=== PATIENT | male | born 1985 | race Caucasian/White ===

== ENCOUNTER 2023-07-15 11:06 | Emergency (ER) | payer SELFPAY ==
[~2023-07-15] VITALS: Ht 175.3 cm; Wt 145.5 kg
[2023-07-15 11:14] VITALS: TEMP 98.4
[2023-07-15] MEDS ORDERED: PREDNISONE20 MG PO (12:20)
[2023-07-15] MEDS ORDERED: ALBUTEROL0.83 MG/ML IH (12:21)
[2023-07-15 12:29] VITALS: BP 142/88; PULSE 93
[2023-07-15] MEDS ORDERED: PROAIR HFA0.09 MG/AC IH (12:33)
== END 2023-07-15 12:33 | disposition home or self-care (01) ==
LOC: COL.ER 11:06
DX: J45.901 Unspecified asthma with (acute) exacerbation (principal)
CPT/HCPCS: J7512

== ENCOUNTER 2023-07-23 10:36 | Emergency (ER) | payer SELFPAY ==
[~2023-07-23] VITALS: Ht 175.3 cm; Wt 145.5 kg
[~2023-07-23 10:36] MED LIST: ALBUTEROL0.83 MG/ML IH; PREDNISONE20 MG PO; PROAIR HFA0.09 MG/AC IH
[2023-07-23 11:17] LABS: BASO # 0.1 K/mm3 (0.0-0.2); BASO % 0.5 % (0.0-2.0); EOS # 0.3 K/mm3 (0.0-0.7); EOS % 1.8 % (0.0-4.0); GRAN # 9.1 K/mm3 (1.4-6.5); GRAN % 61.8 % (42.2-75.2); HEMATOCRIT 45.8 % (42.0-52.0); HEMOGLOBIN 15.2 g/dl (13.5-18.0); LYMPH # 4.2 K/mm3 (1.2-3.4); LYMPH % 28.7 % (20.0-51.0); MEAN CELL VOLUME 85 fl (80.0-100.0); MEAN CORPUSCULAR HEMOGLOBIN 28 pg (27-31); MEAN CORPUSCULAR HGB CONC 33 g/dl (33.0-37.0); MEAN PLATELET VOLUME 11.1 fl (7.4-10.4); MONO # 0.9 K/mm3 (0.1-0.6); MONO % 6.2 % (1.7-9.3); PLATELET COUNT 288 K/mm3 (130-400); REDCELL DISTRIBUTION WIDTH-CV 13.2 % (11.5-14.5)
[2023-07-23 11:35] LABS: ALANINE AMINOTRANSFERASE 63 U/L (0-55); ALBUMIN 3.3 gm/dL (3.5-5.0); ALKALINE PHOSPHATASE 78 U/L (40-150); ANION GAP 10 mmol/L (7-16); AST,SGOT 31 U/L (5-34); BILIRUBIN,TOTAL 0.5 mg/dL (0.2-1.2); BLOOD UREA NITROGEN 14 mg/dL (9-21); CARBON DIOXIDE 26 mmol/L (22-29); CHLORIDE 103 mmol/L (98-107); CREATININE, serum 0.89 mg/dL (0.72-1.25); GLUCOSE 119 mg/dL (70-99); SODIUM 139 mmol/L (136-145); TOTAL PROTEIN 7.2 gm/dL (6.2-8.1)
[2023-07-23 12:06] LABS: TROPONIN-I < 0.010 ng/mL (0.00-0.033)
[2023-07-23] MEDS ORDERED: IPRATROPIUM BROM3 M1 IH ×3 (12:13→12:46)
[2023-07-23] MEDS ORDERED: NEB MC ×3 (12:24→12:46)
[2023-07-23 12:42] VITALS: BP 131/85; PULSE 85; TEMP 97.5
== END 2023-07-23 12:42 | disposition home or self-care (01) ==
LOC: COL.ER 10:36
PROVIDERS: Emergency Medicine
DX: J45.901 Unspecified asthma with (acute) exacerbation (principal); D72.829 Elevated white blood cell count, unspecified
CPT/HCPCS: J7030